=== PATIENT | male | born 1950 | race Caucasian/White ===

== ENCOUNTER 2017-01-01 12:38 | Outpatient (CLI) | payer BC ==
[2017-01-01 13:07] LABS: BASOPHILS # (AUTO) 0.1 10^3/uL (0.0-0.1); EOSINOPHILS # (AUTO) 0.1 10^3/uL (0.0-0.7); EOSINOPHILS % (AUTO) 1.8 %; HCT - HEMATOCRIT 40.4 % (42.0-52.0); HGB - HEMOGLOBIN 13.7 g/dL (14.0-18.0); LYMPHOCYTES % (AUTO) 15.9 %; MEAN CORPUSCULAR HGB CONC 33.8 g/dL (32.0-36.0); MEAN CORPUSCULAR VOLUME 91.8 fL (80.0-94.0); MEAN PLATELET VOLUME 7.2 fL (7.4-11.4); MONOCYTES # (AUTO) 0.5 10^3/uL (0.0-1.0); MONOCYTES % (AUTO) 7.6 %; NEUTROPHILS # (AUTO) 4.7 10^3/uL (1.5-6.6); NEUTROPHILS % (AUTO) 73.7 %; RED CELL DISTRIBUTION WIDTH 14.1 % (12.0-15.0); UNCORRECTED WHITE BLOOD COUNT 6.4 x10^3/uL; WHITE BLOOD COUNT 6.4 x10^3/uL (4.8-10.8)
[2017-01-01 13:28] LABS: BILIRUBIN,TOTAL 0.5 mg/dL (0.2-1.0); CALCIUM 9.2 mg/dL (8.5-10.3); CREATININE 0.8 mg/dL (0.6-1.2); POTASSIUM 4.3 mmol/L (3.5-5.0); TOTAL PROTEIN 7.3 g/dL (6.7-8.2)
== END 2017-01-01 12:39 | disposition home or self-care (01) ==
LOC: LAB 12:38
PROVIDERS: ATTEND Surgery
DX: R63.4 Abnormal weight loss (principal)
CPT/HCPCS: 36415; 80053; 84443; 85025

== ENCOUNTER 2017-01-12 15:17 | Outpatient (CLI) | payer BC ==
--- NOTE | 2017-01-13 11:00 | XRAY Report ---
TWO-VIEW CHEST: 01/12/2017 CLINICAL INDICATION: Smoking history, weight loss. FINDINGS: Frontal and lateral views of the chest demonstrate a normal cardiac silhouette. The lungs are clear. No effusion or pneumothorax is present. IMPRESSION: NORMAL CHEST. JOB #: [id number] EXT JOB #:[id number]
== END 2017-01-12 15:18 | disposition home or self-care (01) ==
LOC: DI.S 15:17
PROVIDERS: ATTEND Surgery
DX: R63.4 Abnormal weight loss (principal)
CPT/HCPCS: 71020

== ENCOUNTER 2017-12-01 08:11 | Day surgery (SDC) | payer BC ==
[~2017-12-01 08:11] MED LIST: BUPIVACAINE 0.5%-EPI 1:200000 PF 30 ML VIAL ONE; LACTATED RINGERS 1,000 ML IV ONE; ceFAZolin 2 GM/50 ML 2 GM/50 ML BAG IV ONE
[2017-12-01] MEDS ORDERED: BUPIVACAINE 0.5% PF 30 ML VIAL ONE (10:12)
[2017-12-01] MEDS ORDERED: LACTATED RINGERS 1,000 ML IV ONE ×2 (10:30→13:38)
[2017-12-01] MEDS ORDERED: BUPIVACAINE 0.5% PF 30 ML VIAL INFIL ONE ×2 (10:49→12:36)
[2017-12-01] MEDS ORDERED: KETOROLAC 30 MG/ML VIAL IVP ONE (11:32)
[2017-12-01] MEDS ORDERED: fentaNYL 250 MCG/5 ML VIAL IVP ONE (11:32)
[2017-12-01] MEDS ORDERED: DEXAMETHASONE 4 MG/ML VIAL IVP ONE (11:32)
[2017-12-01] MEDS ORDERED: NEOSTIGMINE 1 MG/1 ML 10 ML MDV IVP ONE (11:32)
[2017-12-01] MEDS ORDERED: GLYCOPYRROLATE 1 MG/5 ML VIAL IVP ONE (11:32)
[2017-12-01] MEDS ORDERED: ONDANSETRON 4 MG/2 ML VIAL IVP ONE (11:32)
[2017-12-01] MEDS ORDERED: ROCURONIUM 50 MG/5 ML VIAL IVP ONE (11:32)
[2017-12-01] MEDS ORDERED: MIDAZOLAM 2 MG/2 ML VIAL IVP ONE (11:32)
[2017-12-01] MEDS ORDERED: PROPOFOL 200 MG/20 ML VIAL IVP ONE (11:32)
--- NOTE | 2017-12-01 12:54 | OPERATIVE REPORT ---
Operative Report - General Procedure Date: 12/01/17 Planned Procedure: BILATERAL inguinal herniorrhaphy (TEP) Pre-Op Diagnosis: BILATERAL inguinal hernia Procedure Performed: BILATERAL inguinal herniorrhaphy (TEP) Post Op Diagnosis: BILATERAL direct inguinal hernia - Procedure Note Primary Surgeon: Juan Alegre MD Anesthesia Provider: Doris Llanes CRNA Anesthesia Technique: General ET tube, Local (30 mL 1/2% marcaine with epinephrine) IV Fluids (mL): 1,700 Estimated Blood Loss (mL): 10 Urine Output (mL): 200 Complications: None. - Other Other Information/Narrative: OPERATIVE DESCRIPTION/REPORT: After verbal and written informed consent was obtained detailing the risks of infection, bleeding requiring transfusion with its risks, nerve injury, and , and after I met with the patient confirming the surgery and the site of the surgery, the patient was brought to the operative suite and placed supine on the operating table. Great care was taken to avoid pressure points to prevent pressure necrosis or nerve injury. Monitoring devices were applied along with TEDs and pneumatic compressive stockings (to prevent DVT). The patient received preoperative antibiotics for surgical prophylaxis. [ anesthesiologist] sedated and induced general anesthesia and provided anesthesia care for the entirety of the case (Marcus started, Estevan completed). The patient was prepped and draped in the usual sterile manner. With the patient draped my initials were clearly visible. A "time in" then confirmed that the patient was identified with 3 identifiers (name, date and medical record number), the history and physical was in the chart, the signed consent confirming the procedure was in the chart, the patient was in the correct position, the aforementioned prophylactic measures were in place or given, we had the correct personnel and equipment to complete the procedure and that anesthesia, surgery and nursing were given an opportunity to express any concerns. With the agreement of everyone in the room, we proceeded with the operation. A transverse skin incision was made below and to the right of the umbilicus to a length of approximately 3 cm. The incision was carried through the subcutaneous tissue. Bleeders were cauterized. The right rectus sheath was identified and incised lateral to the midline. The preperitoneal space was then developed following insertion of a Spacemaker balloon, which was inflated under direct vision. The balloon would not inflate fully on the right hand side and in order to get the right side of the balloon to inflate additional pressure was used to the point where the balloon popped but it still did not dissect the right hand side. Following removal of the Spacemaker balloon, a #10 trocar was placed in the preperitoneal space and the preperitoneal space was insufflated with CO2 to a steady state pressure of 15 mmHg. A 10 mm 30 degree laparoscope was inserted in the preperitoneal space. Two #5 trocars were placed in the lower midline 5 cm away from the umbilical incision under direct vision and without incident missing the inferior epigastric vessels. Landmarks including symphysis pubis, right and left Harry ligaments and right and left inferior epigastric vessels were identified. Dissection was then continued lateral to the transverse abdominis muscle bilaterally. The left (more symptomatic) side was addressed first. The internal ring was then explored for the presence of the indirect hernia sac and despite extensive dissection no indirect hernia was found. There was some bleeding from the inferior epigastric vessel and this was cauterized to stop the bleeding. Exploration of the medial space showed a medial defect consistent with a direct hernia. A Covidien Progrip LEFT Anatomical (Lot #[id number], reference #[id number] , use by date 2020-06-18). The mesh covered the internal ring as well as the direct inguinal hernia. Great care was taken to ensure that the peritoneum was swept down so that it could not "creep" behind the mesh and result in a recurrent hernia. The right side was then addressed. Again there was the presence of a direct inguinal hernia and no indirect inguinal hernia. This side repaired in exactly the same was as the left hand side with the two notable differences being that the inferior epigastric vessel did not need to be sacrificed on this side and the mesh used was a Covidien Progrip RIGHT Anatomical (Lot #[id number], reference #[id number], use by date 2020-06-18). 30 mL of 1/2% Marcaine was injected into the preperitoneal space and then remaining 10 mL at all three incisions. The preperitoneal space was then deflated and during the deflation the mesh was watched to ensure that it was sandwiched nicely in place and did not change position. All trocars were withdrawn. The defect in the rectus sheath was closed with a [id number] 0 Vicryl suture. The skin incisions were closed with subcuticular 4-0 Monocryl suture. The prep was washed off and Mastisol and Steristrips were applied at all the incisions. At this point a time out was performed that confirmed that all the counts were correct, the procedure that was performed, the blood loss, the IV fluids administered, and the patients condition. The patient's scrotum was evaluated to ensure that the testicles were well seated within the scrotum and that there was no swelling. The prep was washed off and Benzoin and Steristrips were applied. Having tolerated the procedure well, the patient was subsequently extubated and taken to recovery room in good and stable condition.
[2017-12-01 14:36] VITALS: BP 140/87
[2017-12-01] MEDS ORDERED: oxyCOD/ACETAMIN 5 MG/325 MG TABLET PO ONE (15:36)
== END 2017-12-01 08:12 | disposition home or self-care (01) ==
LOC: SDS 08:11
PROVIDERS: ATTEND Surgery
PROC: 0YUA4JZ Supplement Bilateral Inguinal Region with Synthetic Substitute, Percutaneous Endoscopic Approach (ICD-10-PCS; principal; 2017-12-01 09:15)
DX: K40.20 Bilateral inguinal hernia, without obstruction or gangrene, not specified as recurrent (principal); Z87.891 Personal history of nicotine dependence
CPT/HCPCS: 49650; A9270; J0690; J7120

== ENCOUNTER 2017-12-21 14:49 | Outpatient (CLI) | payer BC ==
--- NOTE | 2017-12-22 13:10 | XRAY Report ---
RIGHT ELBOW: 12/21/2017 TWO VIEWS. HISTORY: Pain, repetitive trauma. FINDINGS: No evidence of fracture, malalignment, or joint effusion. Mild spurring of the coronoid process. IMPRESSION: MINOR RIGHT ELBOW DEGENERATIVE CHANGE WITHOUT SUPERIMPOSED ACUTE FINDINGS. TD: 12/22/2017 12:45 MTDMagalys
== END 2017-12-21 14:50 | disposition home or self-care (01) ==
LOC: DI 14:49
PROVIDERS: ATTEND Family Medicine
DX: M25.721 Osteophyte, right elbow (principal)

== ENCOUNTER 2020-02-06 08:15 | Emergency (ER) | payer BC ==
[2020-02-06 08:38] LABS: BASOPHILS # (AUTO) 0.1 10^3/uL (0.0-0.1); BASOPHILS % (AUTO) 0.6 %; EOSINOPHILS # (AUTO) 0.1 10^3/uL (0.0-0.7); EOSINOPHILS % (AUTO) 1.2 %; HGB - HEMOGLOBIN 14.3 g/dL (14.0-18.0); LYMPHOCYTES # (AUTO) 1.3 10^3/uL (1.5-3.5); LYMPHOCYTES % (AUTO) 15.6 %; MEAN CORPUSCULAR HEMOGLOBIN 32.9 pg (27.0-31.0); MEAN CORPUSCULAR HGB CONC 34.9 g/dL (32.0-36.0); MEAN CORPUSCULAR VOLUME 94.3 fL (80.0-94.0); MONOCYTES # (AUTO) 0.5 10^3/uL (0.0-1.0); MONOCYTES % (AUTO) 5.3 %; NEUTROPHILS # (AUTO) 6.5 10^3/uL (1.5-6.6); NEUTROPHILS % (AUTO) 76.9 %; PLT - PLATELET COUNT 304 10^3/uL (130-450); RED BLOOD COUNT 4.35 10^6/uL (4.70-6.10); RED CELL DISTRIBUTION WIDTH 12.2 % (12.0-15.0); WHITE BLOOD COUNT 8.5 x10^3/uL (4.8-10.8)
[2020-02-06] MEDS ORDERED: HYDROmorphone 1 MG/ML CARPUJECT IVP STA (08:47)
--- NOTE | 2020-02-06 08:50 | ED Physician Documentation ---
PD HPI ABD PAIN - Stated complaint Stated Complaint: ABD PX - Chief complaint Chief Complaint: Abd Pain - History obtained from History obtained from: Patient, Family - History of Present Illness Timing - onset: Last night Timing - duration: Hours (12) Timing - details: Abrupt onset Pain level max: 10 Pain level now: 10 Quality: Aching, Pain Location: LUQ, LLQ Radiation: No: Chest, , Lower back, Left flank, Left shoulder, Right flank, Right shoulder, Upper back Improved by: Other (nothing) Worsened by: Moving Associated symptoms: Constipation. No: Fever, Nausea, Vomiting, Hematemesis, Diarrhea, Melena, Hematochezia, Dysuria, Hematuria, Chest pain Similar symptoms before: Has not had sx before Recently seen: Not recently seen Review of Systems Ten Systems: 10 systems reviewed and negative Constitutional: denies: Fever, Chills Respiratory: denies: Cough GI: reports: Constipation. denies: Vomiting, Diarrhea, Hematemesis, Bloody / black stool Skin: denies: Rash Musculoskeletal: denies: Neck pain, Back pain Neurologic: denies: Headache PD PAST MEDICAL HISTORY - Past Medical History Cardiovascular: None Respiratory: None Endocrine/Autoimmune: None GI: None : None HEENT: None Psych: None Musculoskeletal: None Derm: None - Past Surgical History Past Surgical History: Yes - Present Medications Home Medications: Ambulatory Orders Medication Instructions Recorded Confirmed Ascorbic Acid [Vitamin C] 2 tab PO DAILY 11/30/17 11/30/17 B Complx/C/Folic/Zinc/Copper/E 1 each PO DAILY 11/30/17 11/30/17 [Eql Stress B-Complex Tablet] Cholecalciferol [Vitamin D3] 5,000 unit PO DAILY 11/30/17 11/30/17 Chromium Picolinate 1,000 mcg PO DAILY 11/30/17 11/30/17 Prasterone (Dhea) [Dhea 25] 25 mg PO DAILY 11/30/17 11/30/17 Hydrocodone/Acetaminophen 1 - 2 each PO Q6H PRN #14 tablet 02/06/20 [Hydrocodon-Acetaminophen 5-325] Magnesium Citrate 296 ml PO ONCE PRN #1 solution 02/06/20 - Allergies Allergies/Adverse Reactions: Allergies Allergy/AdvReac Type Severity Reaction Status Date / Time No Known Drug Allergies Allergy Verified 11/30/17 10:40 - Social History Does the pt smoke?: No Smoking Status: Never smoker Does the pt have substance abuse?: No - Immunizations Immunizations are current?: Yes - POLST Patient has POLST: No PD ED PE NORMAL - Vitals Vital signs reviewed: Yes - General General: Alert and oriented X 3, No acute distress - HEENT HEENT: Moist mucous membranes - Neck Neck: Supple, no meningeal sign - Cardiac Cardiac: RRR - Respiratory Respiratory: No respiratory distress, Clear bilaterally - Abdomen Abdomen: Soft, Non distended, Other (TTP LLQ, no peritoneal signs) - Derm Derm: Warm and dry - Neuro Neuro: Alert and oriented X 3 - Psych Psych: Normal mood, Normal affect Results - Vitals Vitals: Vital Signs - 24 hr 02/06/20 02/06/20 08:24 10:30 Temperature 35.9 C L Heart Rate 66 75 Respiratory 18 16 Rate Blood Pressure 138/84 H 157/92 H O2 Saturation 95 100 Oxygen O2 Source Room air - Labs Labs: Laboratory Tests 02/06/20 02/06/20 02/06/20 08:29 08:29 09:41 WBC 8.5 RBC 4.35 L Hgb 14.3 Hct 41.0 L MCV 94.3 H MCH 32.9 H MCHC 34.9 RDW 12.2 Plt Count 304 MPV 9.0 Neut # (Auto) 6.5 Lymph # (Auto) 1.3 L Reeves # (Auto) 0.5 Eos # (Auto) 0.1 Baso # (Auto) 0.1 Absolute Nucleated RBC 0.00 Nucleated RBC % 0.0 Sodium 130 L Potassium 4.0 Chloride 95 L Carbon Dioxide 23 Anion Gap 12.0 BUN 12 Creatinine 1.0 Estimated GFR (MDRD) 74 L Glucose 167 H Calcium 9.8 Total Bilirubin 0.7 AST 25 ALT 17 Alkaline Phosphatase 46 Total Protein 7.6 Albumin 4.5 Globulin 3.1 Albumin/Globulin Ratio 1.5 Lipase 31 Urine Color LT. YELLOW Urine Clarity CLEAR Urine pH 7.5 Ur Specific [place] <=1.005 Urine Protein NEGATIVE Urine Glucose (UA) NEGATIVE Urine Ketones NEGATIVE Urine Occult Blood NEGATIVE Urine Nitrite NEGATIVE Urine Bilirubin NEGATIVE Urine Urobilinogen 0.2 (NORMAL) Ur Leukocyte Esterase NEGATIVE Ur Microscopic Review NOT INDICATED Urine Culture Comments NOT INDICATED - Rads (name of study) ct abd/pelvis Radiology: Prelim report reviewed, EMP read contemporaneously, See rad report (No acute abnormality) PD MEDICAL DECISION MAKING - ED course Complexity details: reviewed results, re-evaluated patient, considered differential, d/w patient ED course: Patient with abdominal pain of unclear etiology. No acute findings on CAT scan. No acute findings on laboratory testing. Pain well controlled in the emergency department. Will prescribe pain medication for home. We will treat constipation as well. Tolerating p.o. without difficulty. No evidence of obstruction, perforation, abscess, diverticulitis. Patient and family counseled regarding signs and symptoms for which I believe and urgent re-evaluation would be necessary. Patient with good understanding of and agreement to plan and is comfortable going home at this time This document was made in part using voice recognition software. While efforts are made to proofread this document, sound alike and grammatical errors may occur. Departure - Departure Disposition: 01 Home, Self Care Clinical Impression: Abdominal pain Qualifiers: Abdominal location: unspecified location Qualified Code(s): R10.9 - Unspecified abdominal pain Constipation Qualifiers: Constipation type: unspecified constipation type Qualified Code(s): K59.00 - Constipation, unspecified Condition: Good Instructions: ED Abdominal Pain Unkn Cause, ED Constipation Follow-Up: Trish Lomax MD [Primary Care Provider] - Within 3 Days Prescriptions: Hydrocodone/Acetaminophen [Hydrocodon-Acetaminophen 5-325] 1 - 2 each PO Q6H PRN #14 tablet PRN Reason: pain Magnesium Citrate 296 ml PO ONCE PRN #1 solution PRN Reason: Constipation Comments: Make sure to drink plenty of water at home. Return if you worsen. Follow-up with your doctor in 3 to 4 days for recheck. Return sooner if you worsen. Your CT scan and laboratory testing do not show any acute abnormalities. Do not drink alcohol or drive while on narcotic pain medicine. Note that many narcotic pain relievers also contain tylenol/acetaminophen. Please ensure that your total dose of acetaminophen from all sources does not exceed 3 grams (3000mg) per day. You may constipated on this medication, take a stool softener such as "Colace" twice a day while you are on it. Also recommend a [id number] laxative such as senna or MiraLAX any day that you do not have a bowel movement. If you received narcotic pain medication in the emergency department, do not drive or operate machinery for the next 24 hours. Discharge Date/Time: 02/06/20 10:32
[2020-02-06 08:55] LABS: ALBUMIN 4.5 g/dL (3.2-5.5); ALBUMIN/GLOBULIN RATIO 1.5 (1.0-2.2); BILIRUBIN,TOTAL 0.7 mg/dL (0.2-1.0); CALCIUM 9.8 mg/dL (8.5-10.3); TOTAL PROTEIN 7.6 g/dL (6.7-8.2)
[2020-02-06] MEDS ORDERED: IOVERSOL 320 100 ML VIAL IVP ONE ×2 (08:57→20:33)
--- NOTE | 2020-02-06 09:54 | CT Report ---
PROCEDURE: Abdomen/Pelvis W INDICATIONS: LLQ abd pain CONTRAST: IV CONTRAST: Optiray 320 ml: 100 PO CONTRAST: *NO PO CONTRAST TECHNIQUE: After the administration of oral and intravenous contrast, 5 mm thick sections acquired from the diap hragms to the symphysis. 5 mm thick coronal and sagittal reformats were acquired. For radiation dos e reduction, the following was used: automated exposure control, adjustment of mA and/or kV accordin g to patient size. COMPARISON: None. FINDINGS: Image quality: Excellent. ABDOMEN: Lung bases: Lung bases are clear. Heart size is normal. Solid organs: Liver and spleen are normal in size and enhancement. Gallbladder normal. Biliary sys tem is non dilated. Pancreas enhances normally. No adrenal nodules. Kidneys demonstrate normal siz e and enhancement, without hydronephrosis. Peritoneum and bowel: Bowel loops demonstrate normal wall thickness and caliber. Normal appendix. T here is a moderate amount of stool in colon. No free fluid or air. Nodes and vessels: No retroperitoneal or mesenteric adenopathy by size criteria. Aorta and inferior vena cava are normal in size. Miscellaneous: Small fat-containing umbilical hernia is noted. PELVIS: Genitourinary: Bladder wall thickness is normal. Prostate is surgically absent. Miscellaneous: No inguinal hernias or adenopathy. Bones: Pars defect at L4 bilaterally. There is grade 1 anterolisthesis of L4 on L5. Transitional nadia kamilla with sacralization of L5. No suspicious bony lesions. No vertebral body compression fractures. IMPRESSION: 1. No acute intra-abdominal or pelvic process. No diverticulitis or colitis. Normal appendix. 2. Moderate amount stool in colon. 3. Pars defect at L4 bilaterally with grade 1 anterolisthesis of L4 on L5. There is transitional irma vick with sacralization of L5. Reviewed by: Gerber Tobias MD on 02/06/2020 9:53 AM PDT Approved by: Gerber Tobias MD on 02/06/2020 9:53 AM PDT Station ID: [id number]
[2020-02-06 10:01] LABS: BILIRUBIN,URINE NEGATIVE (NEGATIVE); GLUCOSE, URINE (UA) NEGATIVE (NEGATIVE); KETONES,URINE (UA) NEGATIVE (NEGATIVE); LEUKOCYTE ESTERASE, URINE NEGATIVE (NEGATIVE); NITRITE,URINE NEGATIVE (NEGATIVE); OCCULT BLOOD,URINE NEGATIVE (NEGATIVE); PH,URINE 7.5 PH (5.0-7.5); PROTEIN,URINE NEGATIVE (NEGATIVE); UROBILINOGEN,URINE 0.2 (NORMAL) E.U./dL (NORMAL)
[2020-02-06 10:03] LABS: CLARITY,URINE CLEAR (CLEAR)
[2020-02-06 10:32] VITALS: BP 157/92
== END 2020-02-06 10:32 | disposition home or self-care (01) ==
LOC: ED 08:15
DX: K59.00 Constipation, unspecified (principal); R10.32 Left lower quadrant pain
CPT/HCPCS: 36415; 74177; 80053; 81003; 83690; 85025; 96374; 99284; J1170; Q9967; 81001; 87086

== ENCOUNTER 2020-03-23 08:39 | Outpatient (CLI) | payer BC | END 2020-03-23 08:40 | disposition home or self-care (01) | LOC: LAB.S 08:39 | PROVIDERS: ATTEND Family Medicine | DX: C61 Malignant neoplasm of prostate (principal); Z90.79 Acquired absence of other genital organ(s) | CPT/HCPCS: 36415; 84153 ==

== ENCOUNTER 2020-11-21 08:12 | Day surgery (SDC) | payer BC ==
[~2020-11-21 08:12] MED LIST changes: -BUPIVACAINE 0.5%-EPI 1:200000 PF 30 ML VIAL ONE; -ceFAZolin 2 GM/50 ML 2 GM/50 ML BAG IV ONE
[2020-11-21] MEDS ORDERED: fentaNYL 250 MCG/5 ML VIAL ONE (09:32)
[2020-11-21] MEDS ORDERED: MIDAZOLAM 2 MG/2 ML VIAL ONE ×3 (09:32→09:55)
[2020-11-21] MEDS ORDERED: LACTATED RINGERS 600 ML IV ONE (10:03)
[2020-11-21 10:30] VITALS: BP 110/58
== END 2020-11-21 08:13 | disposition home or self-care (01) ==
LOC: SDS 08:12
PROVIDERS: ATTEND Surgery
DX: Z12.11 Encounter for screening for malignant neoplasm of colon (principal); K57.30 Diverticulosis of large intestine without perforation or abscess without bleeding; Z85.46 Personal history of malignant neoplasm of prostate; Z90.79 Acquired absence of other genital organ(s); Z87.891 Personal history of nicotine dependence
CPT/HCPCS: G0121; J3010; J7120

== ENCOUNTER 2023-07-22 09:27 | Outpatient (CLI) | payer BC ==
[2023-07-22 14:55] LABS: BASOPHILS % (AUTO) 0.7 %; EOSINOPHILS # (AUTO) 0.1 10^3/uL (0.0-0.7); EOSINOPHILS % (AUTO) 2.8 %; HCT - HEMATOCRIT 40.7 % (42.0-52.0); HGB - HEMOGLOBIN 13.6 g/dL (14.0-18.0); LYMPHOCYTES # (AUTO) 1.1 10^3/uL (1.5-3.5); LYMPHOCYTES % (AUTO) 24.3 %; MEAN CORPUSCULAR HEMOGLOBIN 31.3 pg (27.0-31.0); MEAN CORPUSCULAR HGB CONC 33.4 g/dL (32.0-36.0); MEAN CORPUSCULAR VOLUME 93.6 fL (80.0-94.0); MEAN PLATELET VOLUME 8.9 fL (7.4-11.4); MONOCYTES # (AUTO) 0.6 10^3/uL (0.0-1.0); MONOCYTES % (AUTO) 14.4 %; NEUTROPHILS # (AUTO) 2.5 10^3/uL (1.5-6.6); NEUTROPHILS % (AUTO) 57.3 %; PLT - PLATELET COUNT 335 10^3/uL (130-450); RED BLOOD COUNT 4.35 10^6/uL (4.70-6.10); RED CELL DISTRIBUTION WIDTH 13.2 % (12.0-15.0); WHITE BLOOD COUNT 4.4 x10^3/uL (4.8-10.8)
[2023-07-22 16:54] LABS: ALBUMIN 4.6 g/dL (3.2-5.5); ALBUMIN/GLOBULIN RATIO 1.7 (1.0-2.2); BILIRUBIN,TOTAL 0.7 mg/dL (0.2-1.0); CALCIUM 9.6 mg/dL (8.5-10.3); CREATININE 0.8 mg/dL (0.6-1.3); CRP HIGH SENSITIVITY 0.53 mg/L; POTASSIUM 4.2 mmol/L (3.5-4.5); TOTAL PROTEIN 7.3 g/dL (6.4-8.9)
[2023-07-22 17:54] LABS: THYROID STIMULATING HORMONE 1.04 uIU/mL (0.34-5.60)
[2023-07-22 17:58] LABS: FERRITIN 89.1 ng/mL (23.9-336.2)
== END 2023-07-22 09:28 | disposition home or self-care (01) ==
LOC: LAB.S 09:27
PROVIDERS: ATTEND Family Medicine
DX: D64.9 Anemia, unspecified (principal); R53.83 Other fatigue; E03.9 Hypothyroidism, unspecified; E78.5 Hyperlipidemia, unspecified; E55.9 Vitamin D deficiency, unspecified; E87.1 Hypo-osmolality and hyponatremia; C61 Malignant neoplasm of prostate
CPT/HCPCS: 36415; 80053; 82306; 82626; 82728; 83090; 83540; 84153; 84439; 84443; 84466; 84480; 84481; 85025; 86141

== ENCOUNTER 2023-12-09 09:39 | Outpatient (CLI) | payer BC | END 2023-12-09 09:40 | disposition home or self-care (01) | LOC: LAB.S 09:39 | PROVIDERS: ATTEND Family Medicine | DX: Z53.9 Procedure and treatment not carried out, unspecified reason (principal) ==

== ENCOUNTER 2023-12-10 07:49 | Outpatient (CLI) | payer MEDICARE ==
[2023-12-10 14:57] LABS: BASOPHILS % (AUTO) 0.9 %; EOSINOPHILS # (AUTO) 0.3 10^3/uL (0.0-0.7); EOSINOPHILS % (AUTO) 6.8 %; HGB - HEMOGLOBIN 13.6 g/dL (14.0-18.0); LYMPHOCYTES # (AUTO) 1.5 10^3/uL (1.5-3.5); LYMPHOCYTES % (AUTO) 34.2 %; MEAN CORPUSCULAR HEMOGLOBIN 31.6 pg (27.0-31.0); MEAN CORPUSCULAR HGB CONC 33.2 g/dL (32.0-36.0); MEAN CORPUSCULAR VOLUME 95.1 fL (80.0-94.0); MONOCYTES # (AUTO) 0.6 10^3/uL (0.0-1.0); MONOCYTES % (AUTO) 12.8 %; NEUTROPHILS % (AUTO) 44.8 %; PLT - PLATELET COUNT 330 10^3/uL (130-450); RED BLOOD COUNT 4.31 10^6/uL (4.70-6.10); WHITE BLOOD COUNT 4.4 x10^3/uL (4.8-10.8)
[2023-12-10 15:41] LABS: % IRON SATURATION 29 % (20-50); ALBUMIN 4.6 g/dL (3.2-5.5); ALBUMIN/GLOBULIN RATIO 1.8 (1.0-2.2); ALKALINE PHOSPHATASE 45 IU/L (42-121); ALT ALANINE AMINOTRANSFERASE 13 IU/L (10-60); AST ASPARTATE AMINOTRANSFERASE 16 IU/L (10-42); BILIRUBIN,TOTAL 0.6 mg/dL (0.2-1.0); BUN - BLOOD UREA NITROGEN 12 mg/dL (6-20); CALCIUM 9.7 mg/dL (8.5-10.3); CARBON DIOXIDE - CO2 30 mmol/L (21-32); CHLORIDE 98 mmol/L (101-111); CHOL/HDL RATIO 2.3 (<5.0); CHOLESTEROL 248 mg/dL; CREATININE 0.8 mg/dL (0.6-1.3); CRP HIGH SENSITIVITY 0.46 mg/L; GFR - MDRD 94 (>89); GLUCOSE 114 mg/dL (74-104); HDL CHOLESTEROL 110 mg/dL; IRON 109 ug/dL (50-212); LDL CHOLESTEROL,CALCULATED 127 mg/dL; LDL/HDL RATIO 1.2 (<3.6); POTASSIUM 4.4 mmol/L (3.5-4.5); SODIUM 132 mmol/L (135-145); TOTAL IRON BINDING CAPACITY 379 ug/dL (250-450); TOTAL PROTEIN 7.1 g/dL (6.4-8.9); TRANSFERRIN 271 mg/dL (203-362); TRIGLYCERIDES 53 mg/dL (48-352); VLDL CHOLESTEROL 11 mg/dL
[2023-12-10 15:55] LABS: THYROID STIMULATING HORMONE 1.48 uIU/mL (0.34-5.60)
[2023-12-10 16:02] LABS: FERRITIN 91.1 ng/mL (23.9-336.2)
[2023-12-10 19:51] LABS: ESTIMATED AVERAGE GLUCOSE 111 mg/dL (70-100); HEMOGLOBIN A1c% 5.5 % (4.27-6.07)
== END 2023-12-10 07:50 | disposition home or self-care (01) ==
LOC: LAB.S 07:49
PROVIDERS: ATTEND Family Medicine
DX: I10 Essential (primary) hypertension (principal); E78.5 Hyperlipidemia, unspecified; R53.83 Other fatigue; R73.09 Other abnormal glucose; C61 Malignant neoplasm of prostate; E03.9 Hypothyroidism, unspecified; E87.1 Hypo-osmolality and hyponatremia; D64.9 Anemia, unspecified
CPT/HCPCS: 36415; 80053; 80061; 82626; 82728; 83036; 83090; 83540; 83721; 84153; 84439; 84443; 84466; 84480; 84481; 84482; 85025; 86141